=== PATIENT | male | born 1950 | race Caucasian/White ===

== ENCOUNTER 2016-11-08 03:08 | Inpatient (IN) ==
[2016-11-03 09:44] LABS: MANUAL DIFF NEEDED? NO; URINE MICRO REVIEW NEEDED? NO; URINE SOURCE CLEAN CATCH
[2016-11-03 10:08] LABS: BILIRUBIN URINE NEGATIVE (NEGATIVE); BLOOD URINE NEGATIVE (NEGATIVE); COLOR YELLOW; GLUCOSE URINE NEGATIVE (NEGATIVE); LEUKOCYTES URINE NEGATIVE (NEGATIVE); NITRITE URINE NEGATIVE (NEGATIVE); PH URINE 5.5; PROTEIN URINE TRACE mg/dL (NEGATIVE); SP GRAVITY URINE 1.022; TURBIDITY URINE CLEAR (CLEAR); UROBILINOGEN URINE NORMAL (NORMAL)
[2016-11-03 10:10] LABS: UR EPITHELIAL CELLS <10 /HPF (<10); URINE BACTERIA NEGATIVE /HPF; URINE RBC <10 /HPF (<10); URINE WBC <10 /HPF (<10)
[2016-11-03 10:11] LABS: BASO% 0.7 % (0.0-0.8); EOS# 0.15 X1000 (0.0-0.7); EOS% 2.6 % (0.0-10.0); HEMATOCRIT 43.5 % (42.0-52.0); HEMOGLOBIN 15.5 g/dL (14.0-18.0); IMM GRAN# 0.03 X1000 (0.0-0.04); IMM GRAN% 0.5 % (0.0-0.5); LYMPH# 1.51 X1000 (1.2-3.4); LYMPH% 26.6 % (20.5-51.1); MCHC 35.6 g/dL (33-37); MCV 89.9 FL (81-99); MONO# 0.59 X1000 (0.11-0.59); MONO% 10.4 % (1.7-9.3); MPV 10.4 FL (7.4-10.4); NEUT% 59.2 % (42.2-75.2); PLT 248 X1000 (130-400); RBC 4.84 XMIL (4.7-6.1)
[2016-11-03 10:21] LABS: INR 0.97; PROTIME 10.2 Seconds (9.2-11.7)
[2016-11-03 10:49] LABS: AGAP 16; BUN 20 mg/dL (8-22); CALCIUM 9.5 mg/dL (8.8-10.2); CHLORIDE 102 mmol/L (98-107); COSMO 288; POTASSIUM 3.9 mmol/L (3.5-5.1); SODIUM 143 mmol/L (136-145); TCO2 25 mmol/L (25-35)
--- NOTE | 2016-11-03 15:10 | EKG Report ---
Test Performed on : 11/03/2016 08:30:39 AM Test Reason : PAT Blood Pressure : / mmHG Vent. Rate : 074 BPM Atrial Rate : 074 BPM P-R Int : 164 ms QRS Dur : 100 ms QT Int : 406 ms P-R-T Axes : 032 -31 035 degrees QTc Int : 450 ms Normal sinus rhythm. Left axis deviation Minimal voltage criteria for LVH, may be normal variant Abnormal ECG When compared with ECG of 16-JAN-2007 09:27, Non-specific change in ST segment in III T wave amplitude has decreased in in leads V1 Confirmed by Papa Novoa DO ([id number]) on 11/06/2016 7:58:01 PM
[2016-11-08] MEDS ORDERED: LYRICA ONE (07:17)
[2016-11-08] MEDS ORDERED: REGLAN ONE (07:17)
[2016-11-08] MEDS ORDERED: CELEBREX ONE (07:17)
[2016-11-08] MEDS ORDERED: PEPCID ONE (07:17)
[2016-11-08] MEDS ORDERED: COLACE ONE (07:17)
[2016-11-08] MEDS ORDERED: LR 1,000 ML ONE (07:17)
[2016-11-08] MEDS ORDERED: VANCOMYCIN 1 GM/NS 1 GM/250 ML IVPB ONE (07:17)
[2016-11-08] MEDS ORDERED: DIPRIVAN 1% ONE ×4 (08:03→10:12)
[2016-11-08] MEDS ORDERED: ROBINUL ONE (08:04)
[2016-11-08] MEDS ORDERED: XYLOCAINE-MPF 2% ONE ×2 (08:04→10:12)
[2016-11-08] MEDS ORDERED: VERSED ONE (08:04)
[2016-11-08] MEDS ORDERED: FENTANYL ONE (08:05)
[2016-11-08] MEDS ORDERED: VANCOMYCIN ONE (08:44)
[2016-11-08] MEDS ORDERED: DURAMORPH ONE (08:44)
[2016-11-08] MEDS ORDERED: TORADOL ONE (08:44)
[2016-11-08] MEDS ORDERED: CYKLOKAPRON 1,000 MG/NS 1,000 MG/100 ML IVPB ONE ×2 (08:44→08:47)
[2016-11-08] MEDS ORDERED: SODIUM CHLORIDE 0.9% ONE (08:44)
[2016-11-08] MEDS ORDERED: NEOSPORIN G.U. IRRIGANT ONE (08:45)
[2016-11-08] MEDS ORDERED: EXPAREL 1.3% ONE (08:45)
[2016-11-08] MEDS ORDERED: SENSORCAINE 0.5%-EPI 1:200,000 ONE (08:47)
[2016-11-08] MEDS ORDERED: DECADRON ONE (09:39)
[2016-11-08] MEDS ORDERED: OFIRMEV 1000 MG/ISOTONIC SOLN 1,000 MG/100 ML BOTTLE ONE (09:42)
[2016-11-08 10:17] LABS: URINE MICRO REVIEW NEEDED? NO; URINE SOURCE CATH
[2016-11-08 10:22] LABS: BILIRUBIN URINE NEGATIVE (NEGATIVE); BLOOD URINE NEGATIVE (NEGATIVE); COLOR YELLOW; GLUCOSE URINE NEGATIVE (NEGATIVE); LEUKOCYTES URINE NEGATIVE (NEGATIVE); NITRITE URINE NEGATIVE (NEGATIVE); PH URINE 5.5; PROTEIN URINE TRACE mg/dL (NEGATIVE); SP GRAVITY URINE 1.028; TURBIDITY URINE HAZY (CLEAR); UROBILINOGEN URINE NORMAL (NORMAL)
[2016-11-08 10:23] LABS: UR EPITHELIAL CELLS <10 /HPF (<10); URINE BACTERIA NEGATIVE /HPF; URINE RBC <10 /HPF (<10); URINE WBC <10 /HPF (<10)
[2016-11-08] MEDS ORDERED: NS 1,000 ML ONE (11:25)
[2016-11-08] MEDS ORDERED: OXY IR PO PRN (12:45)
[2016-11-08] MEDS ORDERED: MORPHINE IV PRN (12:45)
[2016-11-08] MEDS ORDERED: ZOFRAN IV PRN (12:45)
[2016-11-08] MEDS ORDERED: AMBIEN PO PRN (12:45)
[2016-11-08] MEDS ORDERED: MILK OF MAGNESIA PO PRN (12:45)
[2016-11-08] MEDS: ULTRAM PO SCH ×2 (13:39→18:21)
[2016-11-08] MEDS: NS 1,000 ML IV SCH (13:40)
--- NOTE | 2016-11-08 14:08 | OPERATIVE NOTE ---
PROCEDURE DATE: 11/08/2016 PREOPERATIVE DIAGNOSIS: Left knee degenerative joint disease. POSTOPERATIVE DIAGNOSIS: Left knee degenerative joint disease. PROCEDURE PERFORMED: Left total knee arthroplasty using [employer] orthopedic size 8 femoral component, size 9 tibial base plate, a 14 mm articular insert, and a 38 mm patellar component. ANESTHESIA: Spinal. SURGEON: Lon Worley MD MANAGER SKILLED: GRACIELA Zamora He was present throughout the case and doctor's assistant with critical portions of the case including preparation of the bone and ends for implantation, assisting with implantation including cement removal and wound closure. SECOND MANAGER SKILLED: Diego Nolen RN COMPLICATIONS: None. BLOOD LOSS: Minimal. DRAINS: Hemovac x1. DESCRIPTION OF PROCEDURE: The patient was brought to the operative suite and placed in supine position. After successful administration of spinal anesthesia, a well-padded tourniquet was placed on the left proximal thigh. The left lower extremity was prepped and draped in the usual sterile fashion. The leg was exsanguinated. Tourniquet insufflated to 350 torr. A longitudinal incision was made beginning at the superior pole of the patella and extending distally to the tuberosities, dissected sharply through the skin and full-thickness skin flaps were elevated medially and laterally. A medial arthrotomy was made with a vastus snip. The medial capsule was elevated off the medial tibial plateau. The prepatellar fat pad, ACL, PCL, medial meniscus, lateral meniscus were excised. A drill was entered in the center of this femur. An intramedullary guide was placed, distal cutting block was pinned in place, distal cut was made with the oscillating saw. The femur was sized to a size 8, a size 8 cutting block was pinned in place. Anterior cuts, chamfer cuts, and posterior condylar cuts were made with the oscillating saw. Marginal osteophytes removed with rongeur. A box cutting block was pinned into place. A box cut was made with a box osteotome and oscillating saw. Posterior condyle osteophytes were removed with a curved osteotome and rongeur. Attention was then directed to the tibia. A drill was entered in the center of the tibia. An intramedullary guide was placed. The alignment was checked with drop alexis referencing the anterior cortex tibia and the second ray of the foot, and taking 4 mm off the low side the tibia, which in this case, was medially. The tibial cutting block was pinned into place and the articular surface of the tibial plateau was made with the oscillating saw. The flexion-extension gaps were checked and balanced and found to be tight medially, a medial release was performed. The knee was balanced in flexion and extension at 14 mm. The tibia was sized to a size 9. A size 9 guide was used for the fin punch. The tibial trial, femoral trial, and 14 mm articular insert were placed, taken through range of motion found to have excellent balancing, range of motion. Attention was then directed to the patella and 9 mm of the articular surface of the patella removed with oscillating saw. The patella sized to size 38. A size 38 guide was used to drill peg holes. The lateral facet was chamfered 30 to 45 degrees. Patella trial was placed, taken through range of motion found to have excellent patella tracking. All trials were then removed. The knee was copiously irrigated and dried, being certain all bone debris was removed. The tibial component, femoral component, and patellar component were cemented into place, excess cement being removed with a [place]. Once the cement had hardened, excess cement was again removed with an osteotome. The knee was again copiously irrigated and dried, being certain all bone and cement debris were removed. The trial articular insert was removed. The knee was copiously infiltrated with Exparel, including posterior capsule, anterior capsule, medial and lateral collateral ligaments, anterior musculature, and subcutaneous tissue. The definitive 14 mm articular insert was then locked into place. A drain was placed exiting superior laterally and buried in the lateral gutter. The medial arthrotomy was closed with running 0 V-Loc suture. The skin edge approximated with 2-0 Vicryl. Skin was closed with Prineo. Sterile dressing was applied. The patient tolerated the procedure well without complication. At the end of the procedure, all counts correct x2. The patient was transferred to the recovery room in stable condition. cc: Lon Worley MD MTDKyrie
[2016-11-08] MEDS: TYLENOL PO SCH ×2 (15:56→22:04)
[2016-11-08] MEDS: KEFZOL 2 GM/D5W 2 GM/50 ML IVPB IV SCH (15:57)
[2016-11-08] MEDS: PERIDEX MT SCH ×2 (16:19→22:03)
[2016-11-08] MEDS: LYRICA PO SCH (22:03)
[2016-11-08] MEDS: CELEBREX PO SCH (22:03)
[2016-11-08] MEDS: COLACE PO SCH (22:04)
[2016-11-09] MEDS: ULTRAM PO SCH ×2 (00:06→06:24)
[2016-11-09] MEDS: KEFZOL 2 GM/D5W 2 GM/50 ML IVPB IV SCH (00:06)
[2016-11-09] MEDS: NS 1,000 ML IV SCH ×2 (00:07→02:38)
[2016-11-09] MEDS ORDERED: TUMS PO PRN (04:14)
[2016-11-09] MEDS: TYLENOL PO SCH ×3 (04:31→10:22)
[2016-11-09] MEDS ORDERED: XARELTO PO SCH (06:00)
[2016-11-09 06:30] LABS: HEMATOCRIT 31.5 % (42.0-52.0); HEMOGLOBIN 11.1 g/dL (14.0-18.0)
[2016-11-09 06:45] LABS: AGAP 11; BUN 26 mg/dL (8-22); CALCIUM 8.3 mg/dL (8.8-10.2); CHLORIDE 105 mmol/L (98-107); COSMO 285; POTASSIUM 4.4 mmol/L (3.5-5.1); SODIUM 140 mmol/L (136-145); TCO2 24 mmol/L (25-35)
[2016-11-09] MEDS: CELEBREX PO SCH (08:40)
[2016-11-09] MEDS: PERIDEX MT SCH (08:41)
[2016-11-09] MEDS: COLACE PO SCH (08:41)
[2016-11-09] MEDS: LYRICA PO SCH (08:47)
[2016-11-09] MEDS ORDERED: DECADRON IV ONE (09:00)
[2016-11-09] MEDS ORDERED: PATIENT'S OWN MED PO SCH (09:00)
[2016-11-09] MEDS ORDERED: PEPCID PO SCH (09:00)
--- NOTE | 2016-11-09 09:37 | DISCHARGE SUMMARY ---
ADMISSION DATE: 11/08/2016 DISCHARGE DATE: 11/09/2016 DISCHARGE DIAGNOSIS: Left knee degenerative joint disease, status post left total knee arthroplasty. DISCHARGE MEDICATIONS: See discharge medication list. DISPOSITION: Patient discharged home with home health, physical therapy. Instructed to return for any signs or symptoms of infection or deep venous thrombosis. Instructed to return to see Dr. Worley next . HOSPITAL COURSE: On the day of admission, the patient underwent a left total knee arthroplasty. His postoperative course was unremarkable. At discharge, he is afebrile, tolerating a regular diet, ambulating well with Physical Therapy. His wound is clean, dry, intact without sign of infection. He is discharged to home in stable condition, with instructions to follow up as described above. cc: Lon Worley MD
[2016-11-09 11:18] VITALS: BP 124/68
== END 2016-11-09 11:58 | disposition home health service (06) ==
LOC: SURHOLD 03:08 → 4N 09:40
PROVIDERS: ADMIT Orthopaedic Surgery; ATTEND Orthopaedic Surgery